=== PATIENT | male | born 1980 | race Caucasian/White ===

== ENCOUNTER 2020-03-24 08:30 | Outpatient (RCR) | payer OTHER, SELFPAY ==
--- NOTE | 2020-02-16 08:33 | HP.PTEVAL ---
Patient's Visit Information ARNOLD MAYFIELD is a 39 year old M referred to Physical Therapy by Dr. Afia Bella MD with a diagnosis of L shoulder strain. Date of Evaluation: 02/16/20 Physical Therapist: Arnold Matos, PAUL, OCS, CSCS - Visit Plan Frequency: 2x /Week Duration: 4-6 Weeks Plan: 2x/week for 2-6 weeks as needed for: 1. US nonthermal and grade 2-3 g-h mobs for pain while achy at rest. 2. postural and RC strength as tolerated adn progress to EHP when painfree, pec stretching. 3. Postural and activity modification focus. 4. Home worout progression when conditipon allows(heavy bag, pushups, pullups etc) - Subjective 4 weeks ago was doing a different ex routine(AMRAP with pushups , pullups and heavy bag vs. no pushups) 2 days in a row and second day L shoulder hurt to raise arm up. Tried some of 's shoulder impingement ex whcih seemed to help immediately but then hurt and hour or two later. Avoided weights for a couple weeks then tried again senior teller weights which helped but the pain came back. Pushing and pulling hurts. Reaching up hurt. Went to [facility] who said mild shoulder strain and recommended ice and PT. Ice has helped. Last went paddle boarding and it felt OK and the next day felt great. Got worse the next day. No dignostics, no meds for this. Aches at rest much of time. Sleep is OK for the most part. Might wake up to readjust. Feels best on back. OK in am. Better after activitiy. 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 Work is OK. Hobbies include working out and outdooor activities. Has been hiking but avodiing most upper body stuff. Basic aDLs are going OK. - Pain L shoulder pain Pain Intensity (Out of 10): 1 Pain Intensity Range: 0, 4 - Objective Posture is forward head and forward shoulder blades. Tender to palpation over L biceps tendon and supraspinatus insertion. Contraction of L biceps and supra are painfula dn strong. Other muscles Strong and painfree on L and R side. Supination and pronation with upper arm away from side are slightly painful buit strong on L. - labral. -ext rotation lag test. - drop arm. + HK and neer slightly. reflexes 2/3 bi and tri B. Sensation WNL to gross light touch in B UE. Transfers adn gait are I - Goals Goal 1:: Painfree at rest x 4 days Goal Time Frame: 2-4 Weeks Goal 2:: Patietn feel 80% better and 1/10 pain at worst transiently Goal Time Frame: 2-4 Weeks Goal 3:: Ready to return to upper body workouts Goal Time Frame: 4-6 Weeks Goal 4:: Sleep without discomfort Goal Time Frame: 4-6 Weeks - Rehabilitation Potential Physical Therapy Diagnosis: L biceps strain/supraspinatus Rehabilitation Potential: Good - Anticipated Interventions Patient/Client Instruction: Educate patient on: Condition, Plan of Care For the Purpose of:: To decrease pain, To improve nutrient delivery to tissue, To improve muscle performance and motor function, To increase tolerance to activity/condition/position, To improve ability of physical actions for home/community/work/leisure Therapeutic Exercise to Include: Strength training, Postural training, Neuromotor development, Passive ROM, Active ROM, Scapular Strength/Stabilization For the Purpose of:: To decrease pain, To improve muscle performance and motor function, To increase tolerance to activity/condition/position Manual Therapy Techniques to Include: Mobilization, Passive ROM, Soft tissue mobilization For the Purpose of:: To decrease pain, To increase tolerance to activity/condition/position Ultrasound (thermal/non thermal): Yes - nonthermal biceps tendon origin For the Purpose of:: To decrease swelling/inflammation Thank you for the opportunity to evaluate your patient. For Medicare and Medicare HMO plans, please review the plan of care and approve it. It will need to be FAXED BACK to us at [phone] for Medicare purposes. For Medicare only, by signing this I certify the plan of care. Please let me know if there are questions or concerns regarding this plan of care. Physician Signature: Date:
--- NOTE | 2020-03-24 08:57 | HP.PTEVAL ---
Patient's Visit Information ARNOLD MAYFIELD is a 39 year old M referred to Physical Therapy by Dr. Afia Bella MD with a diagnosis of L shoulder strain. Date of Evaluation: 02/16/20 Physical Therapist: Arnold Matos, STEFANOT, OCS, CSCS - Visit Plan Frequency: 2x /Week Duration: 4-6 Weeks Plan: d/c - Subjective 4 weeks ago was doing a different ex routine(AMRAP with pushups , pullups and heavy bag vs. no pushups) 2 days in a row and second day L shoulder hurt to raise arm up. Tried some of 's shoulder impingement ex whcih seemed to help immediately but then hurt and hour or two later. 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 Pushing and pulling hurts. Reaching up hurt. Went to [facility] who said mild shoulder strain and recommended ice and PT. Ice has helped. Last went paddle boarding and it felt OK and the next day felt great. Got worse the next day. No dignostics, no meds for this. Aches at rest much of time. Sleep is OK for the most part. Might wake up to readjust. Feels best on back. OK in am. Better after activitiy. 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 Work is OK. Hobbies include working out and outdooor activities. Has been hiking but avodiing most upper body stuff. Basic aDLs are going OK. - Pain L shoulder pain Pain Intensity (Out of 10): 0 Pain Intensity Range: 0, 4 - Objective Posture is forward head and forward shoulder blades. Tender to palpation over L biceps tendon and supraspinatus insertion. Contraction of L biceps and supra are painfula dn strong. Other muscles Strong and painfree on L and R side. Supination and pronation with upper arm away from side are slightly painful buit strong on L. - labral. -ext rotation lag test. - drop arm. + HK and neer slightly. reflexes 2/3 bi and tri B. Sensation WNL to gross light touch in B UE. Transfers adn gait are I - Goals Goal 1:: Painfree at rest x 4 days Goal Time Frame: 2-4 Weeks Goal 2:: Patietn feel 80% better and 1/10 pain at worst transiently Goal Time Frame: 2-4 Weeks Goal 3:: Ready to return to upper body workouts Goal Time Frame: 4-6 Weeks Goal 4:: Sleep without discomfort Goal Time Frame: 4-6 Weeks - Rehabilitation Potential Physical Therapy Diagnosis: L biceps strain/supraspinatus Rehabilitation Potential: Good - Anticipated Interventions Patient/Client Instruction: Educate patient on: Condition, Plan of Care For the Purpose of:: To decrease pain, To improve nutrient delivery to tissue, To improve muscle performance and motor function, To increase tolerance to activity/condition/position, To improve ability of physical actions for home/community/work/leisure Therapeutic Exercise to Include: Strength training, Postural training, Neuromotor development, Passive ROM, Active ROM, Scapular Strength/Stabilization For the Purpose of:: To decrease pain, To improve muscle performance and motor function, To increase tolerance to activity/condition/position Manual Therapy Techniques to Include: Mobilization, Passive ROM, Soft tissue mobilization For the Purpose of:: To decrease pain, To increase tolerance to activity/condition/position Ultrasound (thermal/non thermal): Yes - nonthermal biceps tendon origin For the Purpose of:: To decrease swelling/inflammation Thank you for the opportunity to evaluate your patient. For Medicare and Medicare HMO plans, please review the plan of care and approve it. It will need to be FAXED BACK to us at [phone] for Medicare purposes. For Medicare only, by signing this I certify the plan of care. Please let me know if there are questions or concerns regarding this plan of care. Physician Signature: Date:
--- NOTE | 2020-04-19 09:33 | HP.PTDCSUM ---
It has been my pleasure to treat GARCÍA MAYFIELD referred by Dr. Afia Bella MD, with the diagnosis of L shoulder strain for a total of 6 visit(s). Discharge Date: 03/24/20 Please see the following information for a summary of their discharge status. Subjective: Been doing weights and bands and keeps getting better. Achy a little in morning but not the rest of day. Achy is 4/10 and not for long. Sleeps on back with arm at side. Sleep is OK. Much more comfortable. HEP is about right and not painful. Benching has gotten stronger. Activites normal at home. Careful with heavy lifting. Otherwise normal. Has not swung mace yet. L shoulder pain Pain Intensity (Out of 10): 0 % Improvement: 90 Objective/Function: Full aROM L shoulder. Strength is 5/5 except ext rotation 4+, no pain. Overall doing wonderful. Goal 1:: Painfree at rest x 4 days Goal Progress: Goal Met Goal 2:: Patietn feel 80% better and 1/10 pain at worst transiently Goal Progress: Goal Met Goal 3:: Ready to return to upper body workouts Goal Progress: Goal Met Goal 4:: Sleep without discomfort Goal Progress: Goal Met Plan: d/c If there are questions or concerns regarding this patient's physical therapy, please feel free to call me at [phone]. Thank you for the referral of this patient. Sincerely, García Matos, DPT, OCS, CSCS
== END 2020-03-24 19:00 | disposition home or self-care (01) ==
LOC: PT 08:30
PROVIDERS: PCP Family Medicine; Referring Provider Family Medicine; Visit Provider Family Medicine
DX: S46.812D Strain of other muscles, fascia and tendons at shoulder and upper arm level, left arm, subsequent encounter (principal)
CPT/HCPCS: 97110; 97140; 97161; 97164; 97530

== ENCOUNTER → 2022-07-13 | Outpatient (CLI) | payer OTHER, SELFPAY ==
[2022-07-13 10:25] LABS: Absolute Lymphocyte Count 1.79 X10^3/uL (0.83-4.51); Basophil# 0.07 X10^3/uL; Eosinophil# 0.24 X10^3/uL; Eosinophils% 3.6 % (0-5); Hematocrit 45.9 % (40-54); Hemoglobin 15.2 g/dL (13.0-16.5); Lymphocyte # 1.79 X10^3/ul (0.83-4.51); Lymphocyte % 26.8 % (19-41); Mean Corp Hgb Conc 33.1 g/dL (32-36); Mean Corpuscular Hgb 32.6 pg (27.0-32.0); Mean Corpuscular Volume 98.5 fL (80-94); Mean Platelet Vol. 9.9 fl (6.2-12.0); Monocyte# 0.56 X10^3/uL; Monocyte% 8.4 % (0-10); NRBC Flagged by Analyzer 0 % (0-5); Neutrophil % 59.9 % (47-70); Platelet Count 322 K/mm3 (150-450); RBC Distribution Width CV 13.2 % (11.6-14.6); RBC Distribution Width SD 48.3 fl (35.1-43.9); Red Blood Count 4.66 M/mm3 (4.6-6.2); White Blood Count 6.7 K/mm3 (4.4-11.0)
[2022-07-13 10:51] LABS: Hemoglobin A1c 5.3 % (3.8-5.6)
[2022-07-13 10:53] LABS: Vitamin B12 262 pg/mL (211-911); Vitamin D,25 Hydroxy 17.3 ng/mL
[2022-07-13 11:04] LABS: ALB/GLOB Ratio 1.1 RATIO (0.9-2.4); AST(SGOT) 19 U/L (15-37); Alanine Aminotransfer ALT/SGPT 32 U/L (16-61); Albumin, Serum 3.9 g/dL (3.2-5.0); Alkaline Phosphatase 85 U/L (45-117); Anion Gap 10 (5-15); BUN 9 mg/dL (7-18); BUN/Creat Ratio 9.1 RATIO (10-20); Chloride 105 mmol/L (98-107); Creatinine, Serum 0.98 mg/dL (0.70-1.30); EST Glomerular Filtration Rate 88 mL/min (>60); Est Glom Filt Rate - Afr Amer 106 mL/min (>60); Ferritin 132 ng/mL (26-388); Globulin 3.4 g/dL (2.2-4.2); Glucose 98 mg/dL (74-106); Iron 118 ug/dL (65-175); Iron Binding Capacity,Total 307 ug/dL (250-450); Potassium 3.9 mmol/L (3.5-5.1); Protein, Total 7.3 g/dL (6.4-8.2); Sodium Level 141 mmol/L (136-145); T4 Free Direct 0.92 ng/dL (0.76-1.46); Thyroid Stim Hormone (TSH) 1.46 uIU/mL (0.358-3.74)
== END | disposition home or self-care (01) ==
LOC: MFPLAB 08:27
PROVIDERS: PCP Family Medicine; Visit Provider Nurse Practitioner Family
DX: R53.83 Other fatigue (principal)
CPT/HCPCS: 36415; 80053; 82306; 82607; 82728; 83036; 83540; 83550; 84439; 84443; 85025

== ENCOUNTER 2023-05-26 13:06 | Emergency (ER) | payer OTHER, SELFPAY ==
[2023-05-26 13:08] VITALS: BP 160/105; PULSE 130; RESP 18; TEMP 36.3; O2SAT 97; BMI 30.4
--- NOTE | 2023-05-26 13:19 | EX.ED.GENINJ ---
HPI History of Present Illness Chief Complaint: Head Injury Detail of Chief Complaint: Right scalp laceration Informant: patient Onset/Context/Timing Onset: Today Mechanism/Context: Blunt Injury Current Severity: Mild Maximum Severity: Mild Associated Symptoms Associated Symptoms: Negative for Parasthesias, Weakness, Loss of function, Inability to ambulate, Loss of consciousness or Amnesia Narrative Narrative: 42-year-old male no signet past medical history. Was moving a shelf at home. And had a full-size wooden pallet on it. As he was moving the shelf the pallet slid and struck him in the top of his head on the right side. Causing a laceration. He said he went to grab it right before he caught it is when it hit him in the head. Denies any LOC. No headache. He is on no blood thinners. Tetanus is up-to-date within the last 2 years. Denies any other injuries or complaints. This occurred about 30 minutes ago. Tetanus Immunization: <5 years Prior similar symptoms: No Recent Illness/Hospitalization: No PFSH PFSH Home Medications hydroxyzine HCl 25 mg tablet 25 mg PO Q8H PRN anxiety 05/26/23 [History Last Taken Unknown] Allergy/AdvReac Type Severity Reaction Status Date / Time amoxicillin Allergy Intermediate HIVES Verified 05/26/23 13:07 Social History Smoking Status: Never smoker ROS ROS ED ROS Narrative Denies recent illness. Denies headache or vomiting. Review of Systems ROS Unobtainable: Denies due to encephalopathy Constitutional Constitutional ED: Denies chills or fever(s) Eyes Eyes: Denies blurry vision ENT ENT ED: Denies ear pain, rhinorrhea or sore throat Cardiovascular Cardiovascular: Denies chest pain, palpitations or racing heartbeat Respiratory/Chest Respiratory/Chest: Denies cough or dyspnea Gastrointestinal Gastrointestinal: Denies abdominal pain, constipation, diarrhea, melena, nausea or vomiting Genitourinary Genitourinary ED: Denies dysuria or hematuria Musculoskeletal Musculoskeletal: Denies arthralgias Integumentary Denies abscess Neurologic Neurologic: Denies headache(s) Psychiatric Psychiatric: Denies anxiety Endocrine Endocrinology: Denies cold intolerance Hematologic/Lymphatic Hematologic/Lymphatic: Denies easy bleeding or easy bruising Allergic/Immunologic Allergic/Immunologic ED: Denies mouth swelling, tongue swelling or urticaria EXAM Physical Exam Narrative Exam Narrative: 42-year-old male no acute distress. Vital signs stable afebrile. HEENT exam primary to light. Extra motions are intact. No facial trauma. Just to the right of midline of his scalp patient has about 2+ inch laceration that does not gape. Minimal oozing. No significant hematoma. No significant tenderness. No foreign body. This will need close. Otherwise scalp unremarkable. C-spine and neck nontender with full range of motion. Lungs clear. Heart regular rhythm. Chest wall and ribs nontender. Abdomen soft nontender. Back and spine nontender. Moving all 4 extremities. No deformity. 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 Normal range of motion. Neurologic exam normal. Awake alert. GCS of 15. Answering questions following commands. Const Vital Signs: 05/26/23 13:08 Temperature 97.4 F L Temperature Source Temporal Pulse Rate 130 H Respiratory Rate 18 Blood Pressure 160/105 H Blood Pressure Mean 123 Pulse Ox 97 Oxygen Delivery Method Room Air Positive well nourished and well developed; Negative for obese, cachectic, contractures or unkempt General Appearance ED: well developed and NAD; Negative for unkempt, cachectic or contractures Nutritional Appearance: Negative for cachectic or obese HEENT HEENT Narrative: Scalp laceration right of the midline. About 2 inches. Minimal oozing. No hematoma. Minimally tender. No foreign body. trauma and tenderness; Negative for atraumatic Eyes PERRL and EOMs intact bilaterally Neck full ROM General: Negative for tenderness or other Chest Wall inspection of chest normal and palpation of chest normal Breast/Axilla Inspection: Negative for other Resp normal respiratory effort and clear to auscultation bilaterally Effort and Inspection: Negative for pain with movement Auscultation: Negative for rales, rhonchi or wheezes Cardio regular rhythm, S1 normal heart sound, S2 normal heart sound and no murmurs Jugular Venous Distention: Negative for other Palpation: Negative for palpable S3 Rate: regular rate Rhythm: Negative for abnormal rhythm GI normal to inspection, nondistended, normoactive bowel sounds, non-tender, non-distended and no masses Inspection: Negative for abdominal distention Palpation: soft; Negative for tender or guarding Bladder / Kidney Exam: No other Back/Spine normal to inspection and no thoracic nor lumbar tenderness General Back: Negative for CVA tenderness Thoracic Spine / Upper Back: Negative for thoracic spinal tenderness Lumbar Spine / Lower Back: Negative for straight leg raise negative bilaterally Extremity normal to inspection and full ROM General Extremety ED: Negative for deformity, edema or tenderness General Extremity: Negative for deformity or edema Neuro oriented x3, CN's II-XII intact bilaterally, moves all extremities and no focal motor deficits Bal Coma Scale: document GCS findings Spontaneous Obeys Commands Oriented 15 Sensorium / Orientation: alert, oriented to person, oriented to place and oriented to time; Negative for orientation impaired, lethargic or stuporous Motor Exam: strength 5/5 throughout Psych mental status grossly normal and thought process normal Appearance: Negative for unkempt Attitude: No agitated Mood & Affect: Negative for depressed, anxious or tearful Skin no rashes or lesions noted, No no wounds, skin turgor normal and no jaundice Skin Narrative: Right-sided scalp laceration. Wounds: wounds noted PROC Procedures Lacerations Right-sided scalp laceration repair:: Length: 2 in Depth: Sub Q Shape: Linear Prep: Shpio-Clens Suture Information: - (LET applied. Closed using silvano.) Comment: Scalp laceration right of the midline. About 2 inches in length. Cleaned by nursing. I placed 5 silvano. Patient tolerated well. Proper hemostasis and wound closure was obtained. Patient was instructed on wound care and staple removal in 10 days. MDM MDM MDM Narrative Medical decision making narrative: 42-year-old male. Tetanus up-to-date. Minor head injury. Scalp laceration needs repaired. He and I discussed options. He would prefer let and staple repair. Let will be applied to the wound. He does not need any imaging. He is on no blood thinners. He has a normal neurologic exam. There is no hematoma. It was not knocked out. History & Record Review Discussion w/independent historian: Patient Additional record(s) reviewed:: Prior inpatient record, Prior outpatient record, Prior ED visit and Prior labs Discharge Plan Triage Chief Complaint: Head Injury ED Provider: Jace Dominguez Dx/Rx/DC Orders Prescriptions: No Action hydroxyzine HCl 25 mg tablet 25 mg PO Q8H PRN (Reason: anxiety) Primary Care Provider: Afia Bella Referrals: Afia Bella MD [Primary Care Provider] -
[2023-05-26] MEDS: Lidocaine/Epi/Tetracaine 50 ML 1 APPLIC TOPICAL (13:21)
== END 2023-05-26 14:27 | disposition home or self-care (01) ==
PROVIDERS: Emergency Provider Emergency Medicine; PCP Family Medicine; Visit Provider Emergency Medicine
DX: S01.01XA Laceration without foreign body of scalp, initial encounter (principal); Z79.899 Other long term (current) drug therapy; X58.XXXA Exposure to other specified factors, initial encounter
CPT/HCPCS: 12001; 99282